=== PATIENT | female | born 1975 | race Caucasian/White ===

== ENCOUNTER 2018-08-25 09:18 | Observation (INO) | payer BC ==
[2018-08-25 09:52] LABS: CHLORIDE,CL 106 mEq/L (98-106); SODIUM,NA 143 mEq/L (136-145)
[2018-08-25] MEDS ORDERED: Iopamidol 612 MG/ML 100 ML Bottle IVPUSH ONE (10:04)
[2018-08-25] MEDS ORDERED: cefTRIAXone 1 GM Vial IVPUSH ONE (10:30)
[2018-08-25] MEDS ORDERED: Sodium Chloride 0.9% 1,000 ML IV ONE (10:30)
[2018-08-25] MEDS ORDERED: metroNIDAZOLE/Normal Saline 500 MG in Premix Bag 1 BAG IV ONE (10:30)
[2018-08-25] MEDS ORDERED: Sodium Chloride 0.9% 1,000 ML ONE (12:35)
[2018-08-25] MEDS ORDERED: Acetaminophen 325 MG Tab PO PRN (13:25)
[2018-08-25] MEDS ORDERED: Ondansetron 4 MG/2 ML SDV IV PRN (13:25)
[2018-08-25] MEDS: Sodium Chloride 0.9% 1,000 ML IV SCH ×2 (14:11→23:32)
[2018-08-25] MEDS: metroNIDAZOLE/Normal Saline 500 MG in Premix Bag 1 BAG IV SCH (17:35)
[2018-08-25] MEDS: Enoxaparin 40 MG/0.4 ML Syringe SUBCUT SCH (20:40)
[2018-08-26] MEDS: metroNIDAZOLE/Normal Saline 500 MG in Premix Bag 1 BAG IV SCH ×3 (01:53→17:25)
[2018-08-26 07:31] LABS: CHLORIDE,CL 110 mEq/L (98-106); SODIUM,NA 142 mEq/L (136-145)
[2018-08-26] MEDS ORDERED: Morphine 4 MG/ML Syringe SUBCUT PRN (07:49)
[2018-08-26] MEDS: Sodium Chloride 0.9% 1,000 ML IV SCH ×2 (08:10→20:13)
--- NOTE | 2018-08-26 08:13 | PCM.PRNOTE ---
- Free Text/Narrative Note: Patient states she has had little improvement through out the day yesterday- but has not had a BM since 2100 last night. She states she did have some pain throughout the night and was given some morphine but no zofran and had severe nausea/ not sure why she wasn;t given zofran as there was a PRN order for it. We discussed changing the Morphine to SQ and making sure she also had zofran with it. She states that she has not eaten in about three days except some ensure she tried yesterday b/c she feels like she has a bunch of acid and it makes her stomach hurt. She will be started on some protonix daily and see if this helps improve the acid/ stomach pain associated with eating. Labs were reviewed and found to have significant drop in Hemeglobin from 13.7 Yesterday morning to 11.1 this am. She states she did have about 10 episodes of blood diarrhea yesterday but I also wonder if she isn't now diluted some and fluids were reduced to 75ml/ hr from 125ml/hr - it was noted her eyes were slightly puffy as well. Patient is drinking water from bedside as well without difficulty. We will also plan to advance her diet through out the day. She will continue to be observed today and will continue IV antibiotics and fluids. Will recheck labs in am. and hope for better pain control throughout the day.
[2018-08-26] MEDS: Pantoprazole 40 MG Vial IVPUSH SCH (08:21)
--- NOTE | 2018-08-26 09:21 | PCM.PN ---
- General Info Date of Service: 08/26/18 Admission Dx/Problem (Free Text): colitis- weakness Subjective Update: Patient had about 10 loose bloody stools yesterday but none since 2100 last night. Had pain throughout the night and was given morphine- without zofran and had severe nausea- not sure why zofran was not given as there is a PRN order for it. She also states that she has had a lot of stomach burning a nd acid reflux to will initiate some protonix and advance diet through out the day. Functional Status: Reports: Pain Controlled - Review of Systems General: Reports: No Symptoms HEENT: Reports: No Symptoms Pulmonary: Reports: No Symptoms Cardiovascular: Reports: No Symptoms Gastrointestinal: Reports: Abdominal Pain, Diarrhea, Hematochezia, Nausea Musculoskeletal: Reports: No Symptoms Skin: Reports: No Symptoms Neurological: Reports: No Symptoms Psychiatric: Reports: No Symptoms - Patient Data Vitals - Most Recent: Last Vital Signs Temp 98.7 F 08/26/18 08:00 Pulse 75 08/26/18 08:00 Resp 18 08/26/18 08:00 BP 103/61 08/26/18 08:00 Pulse Ox 98 08/26/18 08:00 Weight - Most Recent: 104 lb 12.8 oz I&O - Last 24 Hours: Intake & Output 08/25/18 08/26/18 08/26/18 22:59 06:59 14:59 Intake Total 1100 Balance 1100 Lab Results Last 24 Hours: Laboratory Results - last 24 hr 08/25/18 08/25/18 08/25/18 Range/Units 09:25 09:25 09:25 WBC 8.4 (5.0-10.0) 10^3/uL RBC 4.79 (4.00-5.50) 10^6/uL Hgb 13.7 (12.0-16.0) g/dL Hct 42.2 (37.0-47.0) % MCV 88.1 (82.0-94.0) fL MCH 28.6 (27.0-32.0) pg MCHC 32.5 L (33.0-38.0) g/dL RDW Coeff of [place] 13.1 (11.0-15.0) % Plt Count 250 (150-400) 10^3/uL Neut % (Auto) (35-85) % Lymph % (Auto) (10-55) % [place] % (Auto) (0-16) % Eos % (Auto) (0-5) % Baso % (Auto) (0-3) % Neut # (Auto) (1.80-7.00) 10^3/uL Lymph # (Auto) (1.00-4.80) 10^3/uL [place] # (Auto) (0.00-0.80) 10^3/uL Eos # (Auto) (0.00-0.45) 10^3/uL Baso # (Auto) 10^3/uL Add Manual Diff Yes Neutrophils % (Manual) 84 (35-85) % Lymphocytes % (Manual) 10 L (21-55) % Monocytes % (Manual) 6 (2-12) % Sodium 143 (136-145) mEq/L Potassium 4.0 (3.5-5.0) mEq/L Chloride 106 (98-106) mEq/L Carbon Dioxide 29 (21-32) mmol/L BUN 8 D (7-18) mg/dL Creatinine 0.7 (0.6-1.0) mg/dL Est Cr Clr Drug Dosing TNP Estimated GFR (MDRD) > 60 (>=60) mL/min Glucose 98 (75-99) mg/dL Calcium 8.7 (8.4-10.1) mg/dL Total Bilirubin 0.6 (0.0-1.0) mg/dL AST 26 (15-37) U/L ALT 43 (12-78) U/L Alkaline Phosphatase 80 (46-116) U/L C-Reactive Protein 2.1 H (0.2-0.8) mg/dL Total Protein 7.2 (6.4-8.2) g/dL Albumin 3.6 (3.4-5.0) g/dL Urine Color Yellow (YELLOW) Urine Appearance Clear (CLEAR) Urine pH 5.5 (4.5-8.0) Ur Specific [place] 1.025 H (1.003-1.020) Urine Protein 30 H (NEGATIVE) mg/dL Urine Glucose (UA) Negative (NEGATIVE) mg/dL Urine Ketones 80 H (NEGATIVE) mg/dL Urine Occult Blood Negative (NEGATIVE) Urine Nitrite Negative (NEGATIVE) Urine Bilirubin Negative (NEGATIVE) Urine Urobilinogen 0.2 (0.2-1.0) EU/dL Ur Leukocyte Esterase Negative (NEGATIVE) Urine RBC 0-5 (0-5) /HPF Urine WBC Not seen (0-5) /HPF Ur Squamous Epith Cells Few H (NOT SEEN) /HPF Urine Bacteria Few H (NOT SEEN) /HPF Urine Mucus Moderate H (NOT SEEN) /HPF 08/26/18 08/26/18 Range/Units 05:11 05:11 WBC 7.4 (5.0-10.0) 10^3/uL RBC 3.87 L (4.00-5.50) 10^6/uL Hgb 11.1 L (12.0-16.0) g/dL Hct 34.4 L (37.0-47.0) % MCV 88.9 (82.0-94.0) fL MCH 28.7 (27.0-32.0) pg MCHC 32.3 L (33.0-38.0) g/dL RDW Coeff of More[place] 12.8 (11.0-15.0) % Plt Count 215 (150-400) 10^3/uL Neut % (Auto) 69.6 (35-85) % Lymph % (Auto) 20.0 (10-55) % [place] % (Auto) 8.6 (0-16) % Eos % (Auto) 1.5 (0-5) % Baso % (Auto) 0.3 (0-3) % Neut # (Auto) 5.12 (1.80-7.00) 10^3/uL Lymph # (Auto) 1.47 (1.00-4.80) 10^3/uL [place] # (Auto) 0.63 (0.00-0.80) 10^3/uL Eos # (Auto) 0.11 (0.00-0.45) 10^3/uL Baso # (Auto) 0.02 10^3/uL Add Manual Diff Neutrophils % (Manual) (35-85) % Lymphocytes % (Manual) (21-55) % Monocytes % (Manual) (2-12) % Sodium 142 (136-145) mEq/L Potassium 3.4 L (3.5-5.0) mEq/L Chloride 110 H (98-106) mEq/L Carbon Dioxide 23 (21-32) mmol/L BUN 3 L D (7-18) mg/dL Creatinine 0.5 L (0.6-1.0) mg/dL Est Cr Clr Drug Dosing 112.24 Estimated GFR (MDRD) > 60 (>=60) mL/min Glucose 82 (75-99) mg/dL Calcium 7.2 L (8.4-10.1) mg/dL Total Bilirubin (0.0-1.0) mg/dL AST (15-37) U/L ALT (12-78) U/L Alkaline Phosphatase (46-116) U/L C-Reactive Protein 2.4 H (0.2-0.8) mg/dL Total Protein (6.4-8.2) g/dL Albumin (3.4-5.0) g/dL Urine Color (YELLOW) Urine Appearance (CLEAR) Urine pH (4.5-8.0) Ur Specific [place] (1.003-1.020) Urine Protein (NEGATIVE) mg/dL Urine Glucose (UA) (NEGATIVE) mg/dL Urine Ketones (NEGATIVE) mg/dL Urine Occult Blood (NEGATIVE) Urine Nitrite (NEGATIVE) Urine Bilirubin (NEGATIVE) Urine Urobilinogen (0.2-1.0) EU/dL Ur Leukocyte Esterase (NEGATIVE) Urine RBC (0-5) /HPF Urine WBC (0-5) /HPF Ur Squamous Epith Cells (NOT SEEN) /HPF Urine Bacteria (NOT SEEN) /HPF Urine Mucus (NOT SEEN) /HPF [place] Results Last 24 Hours: Microbiology 08/25/18 10:24 Stool for WBCs - Final Stool / Feces 08/25/18 10:24 C. difficile DNA Amplification - Final Stool / Feces NEGATIVE CDIFF BY DNA Med Orders - Current: Current Medications Acetaminophen (Tylenol) 650 mg PO Q4H PRN PRN Reason: Pain (Mild 1-3)/fever Hydrocodone Bitart/Acetaminophen ([place] 325-5 Mg) 1 tab PO Q4H PRN PRN Reason: Pain (moderate 4-6) Ceftriaxone Sodium (Rocephin) 1 gm IVPUSH Q24H [facility] Enoxaparin Sodium (Lovenox) 40 mg SUBCUT Q24H [facility] Last Admin: 08/25/18 20:40 Dose: 40 mg Metronidazole 500 mg/ Premix 100 mls @ 100 mls/hr IV Q8H [facility] Last Admin: 08/26/18 01:53 Dose: 100 mls/hr Sodium Chloride (Normal Saline) 1,000 mls @ 75 mls/hr IV ASDIRECTED [facility] Last Admin: 08/26/18 08:10 Dose: 75 mls/hr Morphine Sulfate (Morphine) 2 mg SUBCUT Q2H PRN PRN Reason: Abdominal Pain Ondansetron HCl (Zofran) 4 mg IV Q6H PRN PRN Reason: Nausea/Vomiting Pantoprazole Sodium (Protonix Iv) 40 mg IVPUSH Q24H [facility] Last Admin: 08/26/18 08:21 Dose: 40 mg Discontinued Medications Ceftriaxone Sodium (Rocephin) 1 gm IVPUSH ONETIME ONE Stop: 08/25/18 10:31 Last Admin: 08/25/18 10:48 Dose: 1 gm Metronidazole 500 mg/ Premix 100 mls @ 100 mls/hr IV ONETIME ONE Stop: 08/25/18 11:29 Last Admin: 08/25/18 10:47 Dose: 100 mls/hr Sodium Chloride (Normal Saline) 1,000 mls @ 1,000 mls/hr IV ONETIME ONE Stop: 08/25/18 11:29 Last Admin: 08/25/18 10:47 Dose: 1,000 mls/hr Sodium Chloride (Normal Saline) Confirm Administered Dose 1,000 mls @ as directed .ROUTE .STK-MED ONE Stop: 08/25/18 12:36 Last Admin: 08/25/18 14:03 Dose: Not Given Sodium Chloride (Normal Saline) 1,000 mls @ 75 mls/hr IV ASDIRECTED [facility] Last Admin: 08/25/18 23:32 Dose: 125 mls/hr Iopamidol (Isovue-300 (61%)) 100 ml IVPUSH ONETIME ONE Stop: 08/25/18 10:05 Last Admin: 08/25/18 17:46 Dose: Not Given Morphine Sulfate (Morphine Sulfate) 0.5 - 2 mg IV Q2H PRN PRN Reason: Pain (severe 7-10) Last Admin: 08/25/18 20:37 Dose: 2 mg - Exam General: Alert, Oriented HEENT: Pupils Equal, Pupils Reactive, EOMI Neck: Supple, No JVD Lungs: Clear to Auscultation, Normal Respiratory Effort Cardiovascular: Regular Rate, Regular Rhythm GI/Abdominal Exam: Normal Bowel Sounds, Soft, No Organomegaly, No Distention, Pelvis Stable, Tender. No: Guarding, Rigid, Rebound Back Exam: Normal Inspection, Full Range of Motion Extremities: Normal Inspection, Normal Range of Motion, Non-Tender, No Pedal Edema, Normal Capillary Refill Skin: Warm, Dry, Intact Neurological: No New Focal Deficit Psy/Mental Status: Alert, Normal Affect, Normal Mood - Problem List Review Problem List Initiated/Reviewed/Updated: Yes - My Orders Last 24 Hours: My Active Orders 08/26/18 07:49 Morphine 2 mg SUBCUT Q2H PRN 08/26/18 08:00 Pantoprazole [ProTONIX IV] 40 mg IVPUSH Q24H 08/26/18 08:15 Sodium Chloride 0.9% [Normal Saline] 1,000 ml IV ASDIRECTED 08/26/18 Lunch [place] [Soft Diet] [DIET] - Assessment Assessment:: abd pain hematachezia colitis - Plan Plan:: Start protonix for abd pain associated with GERD decrease fluids to 75ml/ hr as she is taking PO fluids well and it was noted that Hem dropped from 13.7 yesterday to 11.1 today- might be a dilution problem - will recheck in the am. Change morphine to SQ rather than IV and make sure Zofran is given with it. Continue IV antibiotics- and discuss d/c in the am if labs are good and we are advancing the diet if it is successful.
[2018-08-26] MEDS: Acetaminophen/HYDROcodone 325-5 MG Tab PO PRN ×2 (09:40→15:58)
[2018-08-26] MEDS: cefTRIAXone 1 GM Vial IVPUSH SCH (11:19)
[2018-08-26] MEDS: Enoxaparin 40 MG/0.4 ML Syringe SUBCUT SCH (20:13)
[2018-08-27] MEDS: metroNIDAZOLE/Normal Saline 500 MG in Premix Bag 1 BAG IV SCH ×2 (09:30→09:47)
[2018-08-27] MEDS: Pantoprazole 40 MG Vial IVPUSH SCH (09:30)
[2018-08-27 10:06] LABS: CHLORIDE,CL 111 mEq/L (98-106); SODIUM,NA 145 mEq/L (136-145)
[2018-08-27 11:36] VITALS: BP 89/58
[2018-08-27] MEDS: cefTRIAXone 1 GM Vial IVPUSH SCH (11:39)
--- NOTE | 2018-08-27 12:50 | PCM.DCSUM1 ---
Discharge Summary - Hospital Course Free Text/Narrative:: patient feels much better-and is taking food and water without difficulty... She has had no diarrhea for 12 hours and hemeglobin is stable from yesterday. Brief History: History of travel to [facility] and then onset of colitis/ dehydration and abd pain. she was given antibiotics for three days and has had great improvemnt. Diagnosis: Stroke: No Modified Rose Mary Scale: No Symptoms at All Modified Rose [place] Scale Score: 0 - Discharge Data Discharge Date: 08/27/18 Discharge Disposition: Home, Self-Care 01 Condition: Good - Discharge Diagnosis/Problem(s) (1) Colitis SNOMED Code(s): 22517942 ICD Code: K52.9 - NONINFECTIVE GASTROENTERITIS AND COLITIS, UNSPECIFIED Status: Acute Current Visit: Yes - Patient Summary/Data Recommended Follow-up Testing/Procedures: Repeat Hemoglobin in one week. - Patient Instructions Diet: Regular Diet as Tolerated Showering/Bathing: May Shower - Discharge Plan *PRESCRIPTION DRUG MONITORING PROGRAM REVIEWED*: Yes *COPY OF PRESCRIPTION DRUG MONITORING REPORT IN PATIENT MARTHA: Yes Prescriptions/Med Rec: Acetaminophen/HYDROcodone [[place] 325-5 MG] 1 tab PO Q4H PRN #15 tablet PRN Reason: Pain (Moderate 4-6) Pantoprazole [ProTONIX IV] 20 mg PO Q24H 30 Days #30 tab Home Medications: Home Meds Albuterol [Ventolin HFA] 1 - 2 puff INH Q4H PRN 06/10/14 [History] Cetirizine HCl/Pseudoephedrine [ZyrTEC-D] 1 tab PO DAILY PRN 06/10/14 [History] valACYclovir HCl [valACYclovir] 1,000 mg PO DAILY PRN 06/10/14 [History] Lubiprostone [Amitiza] 24 mcg PO DAILY 08/25/18 [History] Acetaminophen/HYDROcodone [[place] 325-5 MG] 1 tab PO Q4H PRN #15 tablet 08/27/18 [Rx] Pantoprazole [ProTONIX IV] 20 mg PO Q24H 30 Days #30 tab 08/27/18 [Rx] Patient Handouts: Colitis Referrals: Elijah Aponte MD [ED Physician] - - Discharge Summary/Plan Comment DC Time >30 min.: No - General Info Date of Service: 08/27/18 Admission Dx/Problem (Free Text: colitis- weakness dehydration Subjective Update: Patient had about 10 loose bloody stools yesterday but none since 2100 last night. Had pain throughout the night and was given morphine- without zofran and had severe nausea- not sure why zofran was not given as there is a PRN order for it. She also states that she has had a lot of stomach burning a nd acid reflux to will initiate some protonix and advance diet through out the day. Functional Status: Reports: Pain Controlled, Tolerating Diet - Review of Systems General: Reports: No Symptoms HEENT: Reports: No Symptoms Pulmonary: Reports: No Symptoms Cardiovascular: Reports: No Symptoms Gastrointestinal: Reports: No Symptoms Genitourinary: Reports: No Symptoms Musculoskeletal: Reports: No Symptoms Skin: Reports: No Symptoms Neurological: Reports: No Symptoms Psychiatric: Reports: No Symptoms - Patient Data Vitals - Most Recent: Last Vital Signs Temp 97.8 F 08/27/18 11:34 Pulse 69 08/27/18 11:34 Resp 20 08/27/18 11:34 BP 89/58 L 08/27/18 11:34 Pulse Ox 100 08/27/18 11:34 Weight - Most Recent: 104 lb 12.8 oz I&O - Last 24 hours: Intake & Output 08/26/18 08/27/18 08/27/18 22:59 06:59 14:59 Intake Total 1004 Balance 1004 Lab Results - Last 24 hrs: Laboratory Results - last 24 hr 08/27/18 08/27/18 Range/Units 09:18 09:18 WBC 5.1 (5.0-10.0) 10^3/uL RBC 3.87 L (4.00-5.50) 10^6/uL Hgb 11.2 L (12.0-16.0) g/dL Hct 34.5 L (37.0-47.0) % MCV 89.1 (82.0-94.0) fL MCH 28.9 (27.0-32.0) pg MCHC 32.5 L (33.0-38.0) g/dL RDW Coeff of More[place] 13.0 (11.0-15.0) % Plt Count 237 (150-400) 10^3/uL Add Manual Diff Yes Neutrophils % (Manual) 64 (35-85) % Lymphocytes % (Manual) 27 (21-55) % Monocytes % (Manual) 9 (2-12) % Sodium 145 (136-145) mEq/L Potassium 3.4 L (3.5-5.0) mEq/L Chloride 111 H (98-106) mEq/L Carbon Dioxide 25 (21-32) mmol/L BUN 4 L (7-18) mg/dL Creatinine 0.7 (0.6-1.0) mg/dL Est Cr Clr Drug Dosing 80.17 mL/min Estimated GFR (MDRD) > 60 (>=60) mL/min Glucose 176 H D (75-99) mg/dL Calcium 7.7 L (8.4-10.1) mg/dL Med Orders - Current: Current Medications Acetaminophen (Tylenol) 650 mg PO Q4H PRN PRN Reason: Pain (Mild 1-3)/fever Hydrocodone Bitart/Acetaminophen ([place] 325-5 Mg) 1 tab PO Q4H PRN PRN Reason: Pain (moderate 4-6) Last Admin: 08/26/18 15:58 Dose: 1 tab Ceftriaxone Sodium (Rocephin) 1 gm IVPUSH Q24H [facility] Last Admin: 08/27/18 11:39 Dose: 1 gm Enoxaparin Sodium (Lovenox) 40 mg SUBCUT Q24H [facility] Last Admin: 08/26/18 20:13 Dose: 40 mg Metronidazole 500 mg/ Premix 100 mls @ 100 mls/hr IV Q8H [facility] Last Admin: 08/27/18 09:47 Dose: 100 mls/hr Sodium Chloride (Normal Saline) 1,000 mls @ 75 mls/hr IV ASDIRECTED [facility] Last Admin: 08/26/18 20:13 Dose: 75 mls/hr Morphine Sulfate (Morphine) 2 mg SUBCUT Q2H PRN PRN Reason: Abdominal Pain Ondansetron HCl (Zofran) 4 mg IV Q6H PRN PRN Reason: Nausea/Vomiting Last Admin: 08/26/18 15:54 Dose: 4 mg Pantoprazole Sodium (Protonix Iv) 40 mg IVPUSH Q24H [facility] Last Admin: 08/27/18 09:30 Dose: Not Given Discontinued Medications Ceftriaxone Sodium (Rocephin) 1 gm IVPUSH ONETIME ONE Stop: 08/25/18 10:31 Last Admin: 08/25/18 10:48 Dose: 1 gm Metronidazole 500 mg/ Premix 100 mls @ 100 mls/hr IV ONETIME ONE Stop: 08/25/18 11:29 Last Admin: 08/25/18 10:47 Dose: 100 mls/hr Sodium Chloride (Normal Saline) 1,000 mls @ 1,000 mls/hr IV ONETIME ONE Stop: 08/25/18 11:29 Last Admin: 08/25/18 10:47 Dose: 1,000 mls/hr Sodium Chloride (Normal Saline) Confirm Administered Dose 1,000 mls @ as directed .ROUTE .STK-MED ONE Stop: 08/25/18 12:36 Last Admin: 08/25/18 14:03 Dose: Not Given Sodium Chloride (Normal Saline) 1,000 mls @ 75 mls/hr IV ASDIRECTED [facility] Last Admin: 08/25/18 23:32 Dose: 125 mls/hr Iopamidol (Isovue-300 (61%)) 100 ml IVPUSH ONETIME ONE Stop: 08/25/18 10:05 Last Admin: 08/25/18 17:46 Dose: Not Given Morphine Sulfate (Morphine Sulfate) 0.5 - 2 mg IV Q2H PRN PRN Reason: Pain (severe 7-10) Last Admin: 08/25/18 20:37 Dose: 2 mg - Exam General: Reports: Alert, Oriented HEENT: Reports: Pupils Equal, Pupils Reactive, EOMI Neck: Reports: Supple Lungs: Reports: Clear to Auscultation, Normal Respiratory Effort Cardiovascular: Reports: Regular Rate, Regular Rhythm GI/Abdominal Exam: Normal Bowel Sounds, Soft, Non-Tender, No Distention Back Exam: Reports: Normal Inspection Extremities: Normal Inspection, Normal Range of Motion, No Pedal Edema, Normal Capillary Refill Skin: Reports: Warm, Dry, Intact Neurological: Reports: No New Focal Deficit Psy/Mental Status: Reports: Alert, Normal Affect
[2018-08-27] MEDS ORDERED: Take Home: Ondansetron 4 MG Tab.DIS, 2 Tab Pack PO ONE (13:17)
[2018-08-27] MEDS ORDERED: Take Home: Acetaminophen/HYDROcodone 325-5 MG, 2 Tab Pack PO ONE (13:17)
[2018-08-27] MEDS ORDERED: Ondansetron 4 MG Tab.DIS PO ONE (13:54)
[2018-08-27] MEDS ORDERED: Acetaminophen/HYDROcodone 325-5 MG Tab PO ONE (13:54)
== END 2018-08-27 13:55 | disposition home or self-care (01) ==
LOC: CC.FCMC 09:18 → CC.ACU 09:18 → UNDOADMOB 13:12 → CC.MS 13:12
PROVIDERS: ADMIT Nurse Practitioner Family; ATTEND Family Medicine
DX: A09 Infectious gastroenteritis and colitis, unspecified (principal); E86.0 Dehydration; K21.9 Gastro-esophageal reflux disease without esophagitis; Z88.0 Allergy status to penicillin; Z88.1 Allergy status to other antibiotic agents; Z79.899 Other long term (current) drug therapy
CPT/HCPCS: 36415; 74177; 80048; 80053; 81001; 85025; 86140; 87045; 87046; 87329; 87493; 89055; 96361; 96365; 96366; 96372; 96375; 96376; A9270-GY; C9113; G0378; J0696; J1650; J2270; J2405; J3490; J7030